=== PATIENT | male | born 1940 | race Caucasian/White ===

== ENCOUNTER 2022-02-01 14:38 | Outpatient (CLI) | payer OTHER | END 2022-02-01 15:00 | disposition home or self-care (01) | LOC: MRI 14:38 | PROVIDERS: ATTEND Specialist | DX: I63.341 Cerebral infarction due to thrombosis of right cerebellar artery (principal) | CPT/HCPCS: 70553; Q9965 ==

== ENCOUNTER 2022-04-23 06:38 | Outpatient (CLI) | payer OTHER | END 2022-04-23 15:45 | disposition home or self-care (01) | LOC: MRI 06:38 | PROVIDERS: ATTEND Physical Medicine & Rehabilitation Pain Medicine | DX: M25.561 Pain in right knee (principal); S83.206A Unspecified tear of unspecified meniscus, current injury, right knee, initial encounter | CPT/HCPCS: 73721 ==

== ENCOUNTER 2023-07-05 08:23 | Outpatient (CLI) | payer OTHER | END 2023-07-05 09:00 | disposition home or self-care (01) | LOC: MRI 08:23 | PROVIDERS: ATTEND Internal Medicine | DX: C43.59 Malignant melanoma of other part of trunk (principal) | CPT/HCPCS: 70553; Q9965 ==

== ENCOUNTER 2023-07-28 14:17 | Outpatient (CLI) | payer OTHER | END 2023-07-28 14:26 | disposition home or self-care (01) | LOC: RAD 14:17 | DX: R05.8 Other specified cough (principal) ==